=== PATIENT | male | born 1960 | race American Indian/Alaskan Native ===

== ENCOUNTER 2021-02-20 15:23 | Emergency (ER) | payer SELFPAY ==
[2021-02-20] MEDS ORDERED: cloNIDine 0.2 MG TAB PO ONE (16:59)
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
[2021-02-20 18:38] VITALS: BP 195/131
== END 2021-02-20 19:06 | disposition home or self-care (01) ==
LOC: ED 15:23
DX: J34.89 Other specified disorders of nose and nasal sinuses (principal); M25.522 Pain in left elbow; I10 Essential (primary) hypertension; Z91.14 Patient's other noncompliance with medication regimen; Z79.899 Other long term (current) drug therapy; Y04.8XXA Assault by other bodily force, initial encounter; Y93.89 Activity, other specified; Y92.89 Other specified places as the place of occurrence of the external cause; Y99.8 Other external cause status
CPT/HCPCS: 70150; 99283